=== PATIENT | female | born 1945 | race Caucasian/White ===

== ENCOUNTER 2018-04-27 09:36 | Day surgery (SDC) | payer OTHER ==
[~2018-04-27 09:36] MED LIST: Acetaminophen TAB* 325 MG PO PRN; Buffered Lidocaine 0.9% SYRIN* 5 ML/SYR SYRINGE INTRADERM ONE; Cyclopentolate 1% OPTH.SOL* 2 ML BTL ONE; Ketorolac 0.5% OPHTH (NF) 0.5 % 5 ML BTL ONE; Lidocaine 1%* 5 ML VIAL ONE; Lidocaine 2% EPI 1:200000 MPF*10-20 ML VIAL ONE; Neomycin/Polymy/Dex OPTH.SUSP* MAXITROL 0.1% 5 ML ONE; Phenylephrine 2.5% OPTH.SOL* 2 ML BTL ONE; Povidone Iodine 5% OPTH* 30 ML BTL ONE; Proparacaine 0.5% OPHTH.SOL* 15 ML BTL ONE; acetaZOLAMIDE TAB* 250 MG ONE
[2018-04-27] MEDS ORDERED: Midazolam* 1 MG/ML 2 ML VIAL (2 MG) ONE ×2 (11:48→11:59)
[2018-04-27 12:23] VITALS: BP 106/55
--- NOTE | 2018-04-27 13:02 | OP ---
DATE OF OPERATION: 04/27/2018. DATE OF : 1945. SURGEON: Rom Gaston M.D. PREOPERATIVE DIAGNOSIS: Cataract left eye. POSTOPERATIVE DIAGNOSIS: Cataract left eye. OPERATIVE PROCEDURE: Extracapsular cataract extraction with intraocular lens implant left eye. PROCEDURE: The patient was brought to the operating room after being given 1/2% Alcaine with epineph rine drops in the preoperative area. The eye was prepped and draped in the usual sterile fashion. S terile drape and eyelid speculum were placed. Again, topical 1/2% Alcaine with epinephrine was given . A paracentesis incision was made at the 3 o'clock position with the No.75 blade. Clear cornea inc ision 2.2 x 2.2-mm was created at the 6 o'clock position starting at the anterior limbus using the 2. 2-mm keratome. The anterior chamber was irrigated with 0.4 mL of 1% non-preservative intracameral li docaine and filled with DisCoVisc. A capsulorrhexis was completed using the cystotome and the Utrata forceps. Hydrodissection was performed with balanced salt solution. The lens nucleus was removed wi th the Phacoemulsification handpiece without incident. Cortex was removed with the irrigation-aspira tion handpiece. The capsular bag was re-inflated using DisCoVisc and an [id number] 8 implant was inserte d with the shooter. The irrigation-aspiration handpiece was used to remove all residual DisCoVisc. The eye was refilled with balanced salt solution and the wound checked and found to be watertight. T opical Maxitrol drops were given. [id number]/[facility] #: [id number]
== END 2018-04-27 12:30 | disposition home or self-care (01) ==
LOC: OREAST 09:36
PROVIDERS: ATTEND Specialist
DX: H25.812 Combined forms of age-related cataract, left eye (principal); H43.813 Vitreous degeneration, bilateral; I25.10 Atherosclerotic heart disease of native coronary artery without angina pectoris; I44.7 Left bundle-branch block, unspecified; I10 Essential (primary) hypertension; I49.3 Ventricular premature depolarization; E78.5 Hyperlipidemia, unspecified; I65.29 Occlusion and stenosis of unspecified carotid artery; M85.80 Other specified disorders of bone density and structure, unspecified site
CPT/HCPCS: A9270-GY; J2250; V2632

== ENCOUNTER 2018-05-18 07:58 | Day surgery (SDC) | payer OTHER ==
[~2018-05-18 07:58] MED LIST changes: -Cyclopentolate 1% OPTH.SOL* 2 ML BTL ONE; -Ketorolac 0.5% OPHTH (NF) 0.5 % 5 ML BTL ONE; -Lidocaine 1%* 5 ML VIAL ONE; -Lidocaine 2% EPI 1:200000 MPF*10-20 ML VIAL ONE; +Midazolam* 1 MG/ML 2 ML VIAL (2 MG) ONE; -Neomycin/Polymy/Dex OPTH.SUSP* MAXITROL 0.1% 5 ML ONE; -Phenylephrine 2.5% OPTH.SOL* 2 ML BTL ONE; -Povidone Iodine 5% OPTH* 30 ML BTL ONE; -Proparacaine 0.5% OPHTH.SOL* 15 ML BTL ONE; -acetaZOLAMIDE TAB* 250 MG ONE; +fentaNYL* 50 MCG/ML 2 ML VIAL (100 MCG VIAL) ONE
[2018-05-18] MEDS ORDERED: Neomycin/Polymy/Dex OPTH.SUSP* MAXITROL 0.1% 5 ML ONE (09:04)
[2018-05-18] MEDS ORDERED: Phenylephrine 2.5% OPTH.SOL* 2 ML BTL ONE (09:04)
[2018-05-18] MEDS ORDERED: Proparacaine 0.5% OPHTH.SOL* 15 ML BTL ONE (09:04)
[2018-05-18] MEDS ORDERED: Ketorolac 0.5% OPHTH (NF) 0.5 % 5 ML BTL ONE (09:04)
[2018-05-18] MEDS ORDERED: Lidocaine 1%* 5 ML VIAL ONE (09:04)
[2018-05-18] MEDS ORDERED: acetaZOLAMIDE TAB* 250 MG ONE (09:04)
[2018-05-18] MEDS ORDERED: Cyclopentolate 1% OPTH.SOL* 2 ML BTL ONE (09:04)
[2018-05-18] MEDS ORDERED: Lidocaine 2% EPI 1:200000 MPF*10-20 ML VIAL ONE (09:04)
[2018-05-18] MEDS ORDERED: Povidone Iodine 5% OPTH* 30 ML BTL ONE (09:04)
[2018-05-18 11:07] VITALS: BP 115/54
--- NOTE | 2018-05-19 01:10 | OP ---
DATE OF OPERATION: 05/18/18 [facility] DATE OF : [birth year]. SURGEON: Rom Gaston M.D. PREOPERATIVE DIAGNOSIS: Cataract, right eye. POSTOPERATIVE DIAGNOSIS: Cataract, right eye. OPERATIVE PROCEDURE: Extracapsular cataract extraction with intraocular lens implant right eye. DESCRIPTION OF PROCEDURE: The patient was brought to the operating room after being given 1/2% Alcaine with epinephrine drops in the preoperative area. The eye was prepped and draped in the usual sterile fashion. Sterile drape and eyelid speculum were placed. Again, topical 1/2% Alcaine with epinephrine was given. A paracentesis incision was made at the 9 o'clock position with the No.75 blade. Clear cornea incision 2.2 x 2.2-mm was created at the 12 o'clock position starting at the anterior limbus using the 2.2-mm keratome. The anterior chamber was irrigated with 0.4 mL of 1% non-preservative intracameral lidocaine and filled with DisCoVisc. A capsulorrhexis was completed using the cystotome and the Utrata forceps. Hydrodissection was performed with balanced salt solution. The lens nucleus was removed with the Phacoemulsification handpiece without incident. Cortex was removed with the irrigation-aspiration handpiece. The capsular bag was re-inflated using DisCoVisc and an SN60WF 9.5 implant was inserted with the shooter. The irrigation-aspiration handpiece was used to remove all residual DisCoVisc. The eye was refilled with balanced salt solution and the wound checked and found to be watertight. Topical Maxitrol drops were given. [id number]/[facility] #: [id number] [facility]
== END 2018-05-18 11:10 | disposition home or self-care (01) ==
LOC: OREAST 07:58
PROVIDERS: ATTEND Specialist
DX: H25.811 Combined forms of age-related cataract, right eye (principal); H43.813 Vitreous degeneration, bilateral; Z87.891 Personal history of nicotine dependence; I25.10 Atherosclerotic heart disease of native coronary artery without angina pectoris; I10 Essential (primary) hypertension; I44.7 Left bundle-branch block, unspecified; E78.2 Mixed hyperlipidemia; I35.0 Nonrheumatic aortic (valve) stenosis; I65.23 Occlusion and stenosis of bilateral carotid arteries
CPT/HCPCS: A9270-GY; J2250; J3010; V2632

== ENCOUNTER 2021-01-22 07:51 | Observation (INO) ==
[2021-01-22 08:33] LABS: Hematocrit 41 % (35-47); Mean Corpuscular HGB Conc 34 g/dL (31-36); Mean Corpuscular Hemoglobin 35 pg (27-31); Mean Corpuscular Volume 102 fL (80-97); Mean Platelet Volume 7.7 fL (7.4-10.4); Platelet Count 182 10^3/uL (150-450); Red Blood Count 4.01 10^6 /uL (3.70-4.87); Red Cell Distribution Width 13 % (10-15); White Blood Count 6.1 10^3/uL (3.5-10.8)
[2021-01-22] MEDS ORDERED: Lidocaine 1% VIAL 10 MG/ML VIAL ONE ×2 (08:47→08:55)
[2021-01-22 08:49] LABS: Albumin 3.8 g/dL (3.2-5.2); Albumin/Globulin Ratio 1.3 (1-3); Calcium 9.1 mg/dL (8.6-10.3); Globulin 2.9 g/dL (2-4); Potassium 3.9 mmol/L (3.5-5.0); Total Bilirubin 0.6 mg/dL (0.2-1.0); Total Protein 6.7 g/dL (6.4-8.9)
[2021-01-22] MEDS ORDERED: Naloxone 0.4 mg VIAL 0.4 mg/ml 1 ml VIAL ONE (08:54)
[2021-01-22] MEDS ORDERED: fentaNYL 100 mcg/2 ml 50 MCG/ML VIAL ONE (08:54)
[2021-01-22] MEDS ORDERED: Flumazenil 0.5 mg/5 ml 0.1 MG/ML 5 ml VIAL ONE (08:54)
[2021-01-22] MEDS ORDERED: Midazolam 5 mg/5 ml VIAL 1 mg/ml 5 ml VIAL (5 mg) ONE (08:54)
[2021-01-22] MEDS ORDERED: Iohexol 300 (CONTRAST) 10 ML SDV ONE ×2 (08:55→10:07)
[2021-01-22] MEDS ORDERED: ceFAZolin 2 GM PREMIX 2 GM/50 ML BAG IVPB ONE (09:00)
[2021-01-22] MEDS ORDERED: Nitroglycerin 0.6 mg/hr PATCH (15 mg) TRANSDERM PRN (11:07)
[2021-01-22] MEDS: ceFAZolin VIAL 1 GM in NS 0.9% 50 ML 50 ML IVPB SCH (17:13)
[2021-01-22] MEDS: Ranolazine 500 mg TAB (NF) PO SCH (20:27)
[2021-01-22] MEDS ORDERED: Nitro Patch/OINT Remove PATCH PATCH OFF SCH (21:00)
[2021-01-23] MEDS: ceFAZolin VIAL 1 GM in NS 0.9% 50 ML 50 ML IVPB SCH ×2 (01:46→07:38)
[2021-01-23] MEDS: Ranolazine 500 mg TAB (NF) PO SCH (07:37)
[2021-01-23 08:06] VITALS: BP 151/56
[2021-01-23] MEDS ORDERED: Aspirin EC 81 mg TAB.EC (enteric coated) PO SCH (09:00)
== END 2021-01-23 11:14 | disposition home or self-care (01) ==
LOC: CHICATH 07:51 → MEDTELE 07:51
PROVIDERS: ADMIT Specialist; ATTEND Specialist

== ENCOUNTER 2022-05-20 18:41 | Inpatient (IN) ==
[2022-05-21 04:04] LABS: ABS Eosinophils 0.1 10^3/ul (0-0.6); ABS Lymphocytes 1.2 10^3/ul (1.0-4.8); ABS Neutrophils 9.1 10^3/ul (1.5-7.7); Eosinophil % 0.9 %; Hematocrit 42 % (35-47); Hemoglobin 14.2 g/dL (12.0-16.0); Lymphocyte % 10.2 %; Mean Corpuscular HGB Conc 33 g/dL (31-36); Mean Corpuscular Hemoglobin 34 pg (27-31); Mean Corpuscular Volume 100 fL (80-97); Mean Platelet Volume 7.6 fL (7.4-10.4); Platelet Count 255 10^3/uL (150-450); Red Blood Count 4.23 10^6 /uL (3.70-4.87); Red Cell Distribution Width 13 % (10-15); White Blood Count 11.4 10^3/uL (3.5-10.8)
[2022-05-21 04:51] LABS: Albumin 2.9 g/dL (3.2-5.2); Calcium 8.6 mg/dL (8.6-10.3); Potassium 4.3 mmol/L (3.5-5.0); Total Bilirubin 0.5 mg/dL (0.2-1.0)
[2022-05-21 04:56] LABS: Albumin/Globulin Ratio 0.9 (1-3); Globulin 3.4 g/dL (2-4); Total Protein 6.3 g/dL (6.4-8.9); eGFR CKD-EPI 91.1 (>60)
[2022-05-21] MEDS ORDERED: Iohexol 350 (CONTRAST) 500 ML MDV IV ONE (05:00)
[2022-05-21] MEDS ORDERED: Heparin 5000 UNITS/ML 1 mL VIAL IV SCH (07:00)
[2022-05-21 07:07] LABS: ABS Eosinophils 0.1 10^3/ul (0-0.6); ABS Lymphocytes 1.1 10^3/ul (1.0-4.8); ABS Monocytes 1.2 10^3/ul (0-0.8); ABS Neutrophils 10.3 10^3/ul (1.5-7.7); Eosinophil % 0.9 %; Hematocrit 41 % (35-47); Hemoglobin 13.5 g/dL (12.0-16.0); Lymphocyte % 8.7 %; Mean Corpuscular HGB Conc 33 g/dL (31-36); Mean Corpuscular Hemoglobin 33 pg (27-31); Mean Corpuscular Volume 99 fL (80-97); Mean Platelet Volume 7.5 fL (7.4-10.4); Platelet Count 244 10^3/uL (150-450); Red Blood Count 4.08 10^6 /uL (3.70-4.87); Red Cell Distribution Width 13 % (10-15); White Blood Count 12.7 10^3/uL (3.5-10.8)
[2022-05-21] MEDS: Heparin DRIP 25,000 UNITS BAG 25,000 UNITS/500 ML BAG IV SCH ×2 (07:07→15:57)
[2022-05-21 08:01] LABS: eGFR CKD-EPI 93.5 (>60)
[2022-05-21] MEDS ORDERED: Nitroglycerin 0.4 mg/hr PATCH (10 mg) TRANSDERM PRN (14:11)
[2022-05-21] MEDS: RANOLAZINE 1000 MG PO SCH (19:39)
[2022-05-21] MEDS ORDERED: ICOSAPENT ETHYL 1 GM CAPSULE (NF) PO SCH (21:00)
[2022-05-22 06:38] LABS: ABS Eosinophils 0.1 10^3/ul (0-0.6); ABS Lymphocytes 1.1 10^3/ul (1.0-4.8); ABS Monocytes 0.9 10^3/ul (0-0.8); ABS Neutrophils 7.8 10^3/ul (1.5-7.7); Eosinophil % 0.8 %; Hematocrit 41 % (35-47); Hemoglobin 13.9 g/dL (12.0-16.0); Lymphocyte % 10.7 %; Mean Corpuscular HGB Conc 34 g/dL (31-36); Mean Corpuscular Hemoglobin 34 pg (27-31); Mean Corpuscular Volume 100 fL (80-97); Mean Platelet Volume 7.5 fL (7.4-10.4); Platelet Count 263 10^3/uL (150-450); Red Blood Count 4.12 10^6 /uL (3.70-4.87); Red Cell Distribution Width 13 % (10-15); White Blood Count 9.9 10^3/uL (3.5-10.8)
[2022-05-22 06:48] LABS: Activated Partial Thrombo Time 38.5 seconds (26.0-38.0); INR 1.22 (0.89-1.11)
[2022-05-22 07:05] LABS: ALT 47 U/L (7-52); AST 38 U/L (13-39); Albumin 2.7 g/dL (3.2-5.2); Albumin/Globulin Ratio 0.8 (1-3); Alkaline Phosphatase 152 U/L (35-149); Anion Gap 8 mmol/L (2-11); Blood Urea Nitrogen 15 mg/dL (6-24); CO2 Carbon Dioxide 28 mmol/L (22-32); Calcium 8.6 mg/dL (8.6-10.3); Chloride 100 mmol/L (101-111); Globulin 3.3 g/dL (2-4); Glucose 94 mg/dL (70-100); Magnesium 1.9 mg/dL (1.9-2.7); Potassium 4.2 mmol/L (3.5-5.0); Sodium 136 mmol/L (135-145); eGFR CKD-EPI 94.7 (>60)
[2022-05-22] MEDS: Heparin DRIP 25,000 UNITS BAG 25,000 UNITS/500 ML BAG IV SCH ×2 (07:12→13:41)
[2022-05-22] MEDS: RANOLAZINE 1000 MG PO SCH ×2 (08:43→20:38)
[2022-05-22] MEDS ORDERED: Aspirin EC 81 mg TAB.EC (enteric coated) PO SCH (09:00)
[2022-05-22 11:19] LABS: Carcinoembryonic Antigen > 994.00 ng/mL (0.1-5.0)
[2022-05-22] MEDS ORDERED: guaiFENesin 100 mg/5 ml LIQ unit dose cup PO PRN (11:58)
[2022-05-22] MEDS: Enoxaparin 80 MG/0.8 ML SYR SUBCUT SCH (16:37)
[2022-05-22] MEDS ORDERED: Enoxaparin 80 MG/0.8 ML SYR SUBCUT SCH (21:00)
[2022-05-23 03:10] LABS: Urine Appearance Clear; Urine Bilirubin Negative (Negative); Urine Blood Negative (Negative); Urine Color Yellow; Urine Glucose Negative (Negative); Urine Ketones Negative (Negative); Urine Nitrite Negative (Negative); Urine Protein Negative (Negative); Urine Urobilinogen Negative (Negative)
[2022-05-23] MEDS: Enoxaparin 80 MG/0.8 ML SYR SUBCUT SCH ×2 (04:11→16:54)
[2022-05-23 06:12] LABS: ABS Basophils 0.1 10^3/ul (0-0.2); ABS Eosinophils 0.1 10^3/ul (0-0.6); ABS Lymphocytes 1.1 10^3/ul (1.0-4.8); ABS Monocytes 0.9 10^3/ul (0-0.8); ABS Neutrophils 7.8 10^3/ul (1.5-7.7); Eosinophil % 0.6 %; Hematocrit 40 % (35-47); Hemoglobin 13.5 g/dL (12.0-16.0); Lymphocyte % 11.3 %; Mean Corpuscular HGB Conc 34 g/dL (31-36); Mean Corpuscular Hemoglobin 33 pg (27-31); Mean Corpuscular Volume 99 fL (80-97); Nucleated Red Blood Cells % 0.1; Platelet Count 261 10^3/uL (150-450); Red Blood Count 4.06 10^6 /uL (3.70-4.87); Red Cell Distribution Width 13 % (10-15); White Blood Count 9.9 10^3/uL (3.5-10.8)
[2022-05-23 06:40] LABS: Calcium 8.5 mg/dL (8.6-10.3); Potassium 4.6 mmol/L (3.5-5.0); eGFR CKD-EPI 92.5 (>60)
[2022-05-23] MEDS: RANOLAZINE 1000 MG PO SCH ×2 (09:51→19:38)
[2022-05-24] MEDS: Enoxaparin 80 MG/0.8 ML SYR SUBCUT SCH ×2 (05:32→17:24)
[2022-05-24] MEDS: RANOLAZINE 1000 MG PO SCH ×2 (08:52→19:29)
[2022-05-25 08:21] LABS: ABS Eosinophils 0.1 10^3/ul (0-0.6); ABS Monocytes 0.9 10^3/ul (0-0.8); ABS Neutrophils 8.4 10^3/ul (1.5-7.7); Eosinophil % 0.6 %; Hematocrit 43 % (35-47); Hemoglobin 14.6 g/dL (12.0-16.0); Lymphocyte % 9.6 %; Mean Corpuscular HGB Conc 34 g/dL (31-36); Mean Corpuscular Hemoglobin 34 pg (27-31); Mean Corpuscular Volume 99 fL (80-97); Mean Platelet Volume 7.5 fL (7.4-10.4); Platelet Count 297 10^3/uL (150-450); Red Blood Count 4.33 10^6 /uL (3.70-4.87); Red Cell Distribution Width 13 % (10-15); White Blood Count 10.4 10^3/uL (3.5-10.8)
[2022-05-25 08:37] LABS: Calcium 8.7 mg/dL (8.6-10.3); Potassium 4.2 mmol/L (3.5-5.0)
[2022-05-25] MEDS ORDERED: fentaNYL 100 mcg/2 ml 50 MCG/ML VIAL ONE (09:34)
[2022-05-25] MEDS: RANOLAZINE 1000 MG PO SCH (11:31)
[2022-05-25 11:50] VITALS: BP 110/57
[2022-05-25 14:14] LABS: AFP Tumor Marker 13 ng/mL
[2022-05-25 14:23] LABS: CA 19-9 1470 U/mL (<35)
[2022-05-25] MEDS ORDERED: Enoxaparin 80 MG/0.8 ML SYR SUBCUT ONE (14:45)
== END 2022-05-25 16:20 | disposition home or self-care (01) | DRG 175 ==
LOC: ED 18:41 → EDHOLD 18:41 → SUATTDRO 05-21 09:17 → OBSVTOIN 05-21 09:17 → MEDTELE 05-21 12:54
PROVIDERS: ADMIT Internal Medicine; ATTEND Internal Medicine

== ENCOUNTER 2022-07-02 13:51 | Inpatient (IN) ==
[2022-07-02 15:00] LABS: ABS Lymphocytes 0.5 10^3/ul (1.0-4.8); ABS Monocytes 0.6 10^3/ul (0-0.8); ABS Neutrophils 8.2 10^3/ul (1.5-7.7); Hematocrit 41 % (35-47); Hemoglobin 13.3 g/dL (12.0-16.0); Lymphocyte % 5.3 %; Mean Corpuscular HGB Conc 33 g/dL (31-36); Mean Corpuscular Hemoglobin 32 pg (27-31); Mean Corpuscular Volume 100 fL (80-97); Mean Platelet Volume 6.9 fL (7.4-10.4); Platelet Count 283 10^3/uL (150-450); Red Blood Count 4.13 10^6 /uL (3.70-4.87); Red Cell Distribution Width 14 % (10-15); White Blood Count 9.3 10^3/uL (3.5-10.8)
[2022-07-02 15:09] LABS: INR 1.11 (0.89-1.11)
[2022-07-02 15:20] LABS: CKMB ng/mL 2.9 ng/mL (0.6-6.3)
[2022-07-02 15:31] LABS: Albumin/Globulin Ratio 0.9 (1-3); Calcium 9.9 mg/dL (8.6-10.3); Globulin 3.3 g/dL (2-4); Total Bilirubin 0.3 mg/dL (0.2-1.0); Total Protein 6.3 g/dL (6.4-8.9); eGFR CKD-EPI 81.7 (>60)
[2022-07-02] MEDS ORDERED: cefTRIAXone 1 gm/50 mL D5W 1 GM/50 ML BAG IV ONE (16:37)
[2022-07-02] MEDS ORDERED: Azithromycin 500 mg/250 ml NS 500 MG/250 ML BAG IVPB ONE (16:37)
[2022-07-02] MEDS ORDERED: Iohexol 350 (CONTRAST) 500 ML MDV IV ONE (16:43)
[2022-07-02 16:54] LABS: High Sensitivity Troponin 1 Hr 12 pg/mL (<15)
[2022-07-02 17:12] LABS: PO2 Arterial 114 mmHg (80-100)
[2022-07-02 17:14] LABS: PCO2 Arterial > 100 mmHg (35-45)
[2022-07-02] MEDS ORDERED: Ondansetron ODT 4 mg TAB 4 MG TAB SL PRN (18:42)
[2022-07-02] MEDS ORDERED: Senna TAB 8.6 mg TAB PO PRN (18:42)
[2022-07-02] MEDS ORDERED: Atropine 1% (ORAL/SL) 15 ML BTL SL PRN (18:42)
[2022-07-02] MEDS ORDERED: Morphine ORAL CONCENTRATE 5 MG/0.25 ML ORAL.SYRIN PO PRN (18:42)
[2022-07-02] MEDS ORDERED: Scopolamine 1 mg/72hr PATCH TRANSDERM SCH (19:00)
[2022-07-02] MEDS: Morphine 2 MG/ML SYRINGE IV PRN (22:28)
[2022-07-03] MEDS: Morphine 2 MG/ML SYRINGE IV PRN (04:01)
[2022-07-03 07:33] VITALS: BP 95/60
== END 2022-07-03 11:10 | disposition expired | DRG 951 ==
LOC: ED 13:51 → EDHOLD 18:38 → SUATTDRO 18:38 → MED 22:08
PROVIDERS: ADMIT Internal Medicine; ATTEND Internal Medicine